=== PATIENT | male | born 1970 ===

== ENCOUNTER 2020-09-03 14:05 | Inpatient (IN) | payer OTHER ==
[~2020-09-03] VITALS: Ht 162.6 cm; Wt 89.9 kg
[2020-09-11] VITALS (11 sets, daily range): BP systolic 124–144; BP diastolic 64–94; PULSE 65–85; TEMP 97.7–98.9
[2020-09-11] MEDS ORDERED: UNISOM25 MG PO (07:59)
[2020-09-11] MEDS ORDERED: VOLTAREN GEL 1%1 TU TP (07:59)
[2020-09-11] MEDS ORDERED: MICARDIS HCT 121 TAB PO (08:17)
[2020-09-11] MEDS ORDERED: ZOCOR 20MG20 MG PO (08:17)
--- NOTE | 2020-09-11 08:20 | NUR ---
The patient ambulated back to [facility] independently using a steady gait and appeared to tolerate the activity well. Vital signs obtained. Consent signed. 18G IV started in left wrist on second attempt, NS infusing without difficulty. Flagyl IV started as ordered. Heart Reg. Lungs clear. Bowel sounds audible. Call light is within reach. The patient denies any further needs at this time. Will continue to monitor the patient.
--- NOTE | 2020-09-11 13:35 | NUR ---
PATIENT ARRIVED TO ROOM 346 VIA BED POST-OP. VSS. ABDOMINAL LAP SITES X4 DRESSED WITH BANDAIDS AND ARE CD&I. LOW ABDOMINAL TRANSVERSE INCSION CD&I AND COVERED WITH GAUZE & HYPAFIX DRESSING. MORALES CATHETER TO DEPENDENT DRAINAGE. SCD'S TO BLE. PATIENT IS DROWSY BUT EASILY AROUSABLE. WILL CONTINUE TO MONITOR.
--- NOTE | 2020-09-11 17:20 | NUR ---
PATIENT TOLERATING CLEAR LIQUIDS. GENERAL DIET ORDERED. POST-OP VSS AND COMPLETE.
--- NOTE | 2020-09-11 18:00 | NUR ---
PATIENT ASSISTED UP TO THE BEDSIDE CHAIR WITH STAFF. PATIENT REPORTS THAT HIS PAIN IS MUCH BETTER SITTING UP. PATIENT EDUCATED ON ERAS PROTOCOL. WILL REPORT OFF TO ONCOMING NURSE.
--- NOTE | 2020-09-11 21:36 | NUR ---
Ambulated in hallway with staff, does well. Back to bed, washburn with yellow hazy urine. Medicated with HS med and Oxycodone 5mg po for abd pain. Has 4 lap sites with bandaid and low transverse D/I.
--- NOTE | 2020-09-12 00:30 | NUR ---
SCHEDULED IV ANTIBIOTIC GIVEN WELL ES TYLENOL 1000MG. PT DENIES NEEDS AT THIS TIME.
[2020-09-12 04:28] VITALS: BP 117/60; PULSE 80; TEMP 98.5
--- NOTE | 2020-09-12 05:51 | NUR ---
PT RATES PAIN 2/10 TO ABD. HAS NOT PASSED GAS, IS CHEWING GUM. DID NOT WANT MORALES OUT AT THIS TIME.
[2020-09-12 07:44] VITALS: BP 133/73; PULSE 80; TEMP 98
[2020-09-12 07:57] LABS: BASO % 0.1 % (0.0-2.0); GRAN # 10.4 (1.4-6.5); GRAN % 84.1 % (42.2-75.2); HEMATOCRIT 41.9 % (42.0-52.0); HEMOGLOBIN 14.1 g/dl (13.5-18.0); LYMPH # 1.3 (1.2-3.4); LYMPH % 10.7 % (20.0-51.0); MEAN CELL VOLUME 85 fl (80.0-100.0); MEAN CORPUSCULAR HEMOGLOBIN 29 pg (27.0-31.0); MEAN CORPUSCULAR HGB CONC 34 g/dl (33.0-37.0); MEAN PLATELET VOLUME 10.7 fl (7.4-10.4); MONO # 0.6 (0.1-0.6); MONO % 4.8 % (1.7-9.3); PLATELET COUNT 222 K/mm3 (130-400); RED BLOOD COUNT 4.91 M/mm3 (4.20-5.60); REDCELL DISTRIBUTION WIDTH-CV 13.8 % (11.5-14.5)
[2020-09-12 08:14] LABS: CREATININE, serum 0.97 (0.66-1.25); POTASSIUM 4.2 mmol/L (3.4-5.0)
--- NOTE | 2020-09-12 09:54 | NUR ---
Su catheter discontinued at 0920 per doctors order.
--- NOTE | 2020-09-12 10:10 | NUR ---
OTTO met with the patient to discuss discharge plan. The patient lives on [address] with his , Estefani (ph#[phone]). He reports independence with ADLs and does not have any DME. The patient receives primary care at the [facility] and he receives his medications from [facility] and [facility]. The patient does not have a DPOA-HC in EMR, but he states that he does have one completed and that it designates his . The patient plans to return home with his upon discharge. No additional needs at this time.
--- NOTE | 2020-09-12 10:44 | NUR ---
Patient alert and oriented answers questions appropriately. See assessment. Abdomen soft, non tender, non distended. Bowel sounds active x4 quads. +Flatus. Lap sites to abdomen with edges well approximated, no redness or drainage noted. ERAS protocol reviewed with patient. No c/o at this time.
[2020-09-12 11:20] VITALS: BP 133/75; PULSE 65; TEMP 99.1
--- NOTE | 2020-09-12 11:33 | NUR ---
First visit from the principle software engineer. No needs right now.
[2020-09-12 16:41] VITALS: BP 128/78; PULSE 61; TEMP 98.5
[2020-09-12 20:10] VITALS: BP 124/65; PULSE 62; TEMP 98.8
--- NOTE | 2020-09-12 21:00 | NUR ---
PT IN BED, WATCHING TV. IS ALERT AND ORIENTED X4. SL TO LEFT WRIST, FLUSHES WELL. ABD SOFT, LOW TRANSVERSE WITH DRSG WITH OLD DRAINAGE NOTED, LAP SITES X4 DIONISIO. VOIDING WITHOUT PROBLEM AND REPORTS PASSING GAS AND STOOL. TAKES HS MEDS WITHOUT DIFFICULTY. DENIES PAIN AT THIS TIME.
[2020-09-12 23:49] VITALS: BP 121/67; PULSE 57; TEMP 98.9
[2020-09-13 03:48] VITALS: BP 120/70; PULSE 57; TEMP 98.6
[2020-09-13 07:52] VITALS: BP 136/60; PULSE 63; TEMP 98.6
--- NOTE | 2020-09-13 10:46 | NUR ---
Initial visit; Patient joaquin Dee for coming in and visiting. offered [place] [employer] blessings and a good care home from [employer]. thanked God that [place] had a good report from his recent surgical procedure.
[2020-09-13] MEDS ORDERED: TYLENOL 500MG500 MG PO (11:18)
[2020-09-13] MEDS ORDERED: ROXICODONE 55 MG/TAB PO (11:18)
[2020-09-13 11:38] VITALS: BP 114/64; PULSE 59; TEMP 98
--- NOTE | 2020-09-13 12:55 | NUR ---
Patient alert and oriented, answers questions appropriately. See assessment. Abdomen soft, non tender, non distended. Bowel sounds active x4 quads. +Flatus. +Bowel movement. Lap sites to abdomen with edges well approximated, no redness or drainage noted. ERAS protocol reviewed with patient. No c/o at this time.
--- NOTE | 2020-09-13 14:12 | NUR ---
Discharge instructions reviewed with patient, verbalized understanding. Discharged via wheelchair to auto/home with family at 1405.
== END 2020-09-13 14:05 | disposition home or self-care (01) | DRG 331 ==
LOC: INPTSU 09-11 07:25 → SURG 09-11 09:45
PROVIDERS: ADMIT Surgery
PROC: 0DJD4ZZ Inspection of Lower Intestinal Tract, Percutaneous Endoscopic Approach (ICD-10-PCS; 2020-09-11)
PROC: 8E0W0CZ Robotic Assisted Procedure of Trunk Region, Open Approach (ICD-10-PCS; 2020-09-11)
PROC: 0DTK0ZZ Resection of Ascending Colon, Open Approach (ICD-10-PCS; principal; 2020-09-11 09:45)
DX: K63.89 Other specified diseases of intestine (principal); R19.09 Other intra-abdominal and pelvic swelling, mass and lump
CPT/HCPCS: A4314; J0690; J1100; J1170; J1650; J1885; J2250; J2370; J2405; J2704; J3010; J7030; J7120